=== PATIENT | male | born 1975 | race Caucasian/White ===

== ENCOUNTER 2020-09-16 08:45 | Outpatient (REF) | payer MEDICAID, SELFPAY ==
[2020-09-16 15:07] LABS: HCT 47.5 % (40.0-50.0); HGB 16.3 g/dL (13.5-17.5); MCH 30.8 pg (27.0-33.0); MCHC 34.3 % (32.0-36.0); MCV 89.8 fL (80-95); MPV 8.5 fL (8.0-11.0); Platelet Count 319 10^3/uL (130-400); RBC 5.29 10^6/uL (4.36-5.78); RDW 12.7 % (11.8-14.1); WBC 5.99 10^3/uL (4.4-10.8)
[2020-09-16 15:29] LABS: ALT 28 U/L (16-63); AST 18 U/L (15-37); Albumin 4.2 g/dL (3.4-5.0); Alkaline Phosphatase 55 U/L (46-116); BUN 14 mg/dL (7-18); Bilirubin, Total 0.5 mg/dL (0.2-1.0); CREATININE 0.8 mg/dL (0.70-1.30); Calculated LDL 181 mg/dL (<100); Chloride 103 mmol/L (98-107); Cholesterol 244 mg/dL (<200); Glucose 94 mg/dL (74-106); HDL Cholesterol 44 mg/dL (40-60); Potassium 4.8 mmol/L (3.5-5.1); Sodium 141 mmol/L (136-145); Total Protein 7.7 g/dL (6.4-8.2); Triglyceride 96 mg/dL (<150)
== END 2020-09-16 08:46 | disposition home or self-care (01) ==
LOC: NCHCN 08:45
PROVIDERS: Visit Provider Physician Assistant
DX: Z13.220 Encounter for screening for lipoid disorders (principal); Z13.228 Encounter for screening for other metabolic disorders; Z00.00 Encounter for general adult medical examination without abnormal findings
CPT/HCPCS: 80053; 80061; 85027

== ENCOUNTER 2021-02-26 08:23 | Outpatient (REF) | payer MEDICAID, SELFPAY ==
[2021-02-26 14:25] LABS: Calculated LDL 167 mg/dL (<100); Cholesterol 221 mg/dL (<200); HDL Cholesterol 40 mg/dL (40-60); Triglyceride 73 mg/dL (<150)
== END 2021-02-26 08:24 | disposition home or self-care (01) ==
LOC: NCHCN 08:23
PROVIDERS: Visit Provider Physician Assistant
DX: E78.5 Hyperlipidemia, unspecified (principal)
CPT/HCPCS: 80061

== ENCOUNTER 2021-10-05 01:13 | Outpatient (CLI) | payer MEDICAID, SELFPAY ==
--- NOTE | 2021-10-05 | DI.RAD_ITS ---
Exam(s) XR THORACIC SPINE COMPLETE EXAM: XR THORACIC SPINE COMPLETE CLINICAL HISTORY: CHRONIC THORACIC BACK PAIN, M54.9, HX OF DISTANT TRAUMA. TECHNIQUE: 2D digital imaging was performed. COMPARISON: No exams were available for comparison FINDINGS: BONES: There is no fracture or destructive lesion. The vertebral bodies and posterior elements are un remarkable. Alignment is within normal limits. DISKS:Mild anterior disc space narrowing and small endplate osteophytes mid to lower thoracic spine. SOFT TISSUE: Visualized lungs are clear. Heart size normal. IMPRESSION: Mild degenerative changes of the mid and lower thoracic spine. DATA REPOSITORY: RADIATION DOSE DELIVERED:
== END 2021-10-05 01:33 ==
PROVIDERS: PCP Physician Assistant; Visit Provider Physician Assistant
DX: M54.6 Pain in thoracic spine (principal); M51.34 Other intervertebral disc degeneration, thoracic region; M25.78 Osteophyte, vertebrae
CPT/HCPCS: 72072

== ENCOUNTER → 2022-01-14 00:37 | Outpatient (CLI) | payer MEDICAID, SELFPAY ==
--- NOTE | 2022-01-14 14:25 | DI.RAD_ITS ---
Exam(s) XR KNEE RT 3V AP,LAT,MIRANDA EXAM: XR KNEE RT 3V AP,LAT,MIRANDA CLINICAL HISTORY: RT KNEE JOINT PAIN, M25.561, INSTABILITY, S/P TWISTING INJURY 3 MONTHS AGO. TECHNIQUE: 2D digital imaging was performed. COMPARISON: No exams were available for comparison FINDINGS: 3 views No evidence of obvious fracture but there is a prominent joint effusion signifying internal derangeme nt. No osseous lesions. No obvious degenerative changes. No osteochondral defects. No osseous les ions. No radiopaque foreign body. IMPRESSION: No significant osseous findings. However, there is a joint effusion signifying an internal derangeme nt. DATA REPOSITORY: RADIATION DOSE DELIVERED:
== END ==
PROVIDERS: PCP Physician Assistant; Visit Provider Physician Assistant
DX: M25.461 Effusion, right knee (principal); M23.8X1 Other internal derangements of right knee; M25.361 Other instability, right knee; Z87.828 Personal history of other (healed) physical injury and trauma
CPT/HCPCS: 73562

== ENCOUNTER → 2022-02-11 02:08 | Outpatient (CLI) | payer MEDICAID, SELFPAY ==
--- NOTE | 2022-02-11 13:45 | DI.MRI_ITS ---
Exam(s) MR LOWER JOINT RT WO EXAM: MR LOWER JOINT RT WO CLINICAL HISTORY: RT KNEE JT, INSTABILITY S/P TWISTING INJURY 3 MOS AGO, M25.561. TECHNIQUE: Multiplanar multisequence MRI was performed. COMPARISON: CR XR KNEE RT 3V AP,LAT,MIRANDA from 01/14/2022 FINDINGS: BONES: There is no fracture or contusion pattern. JOINTS: A moderate-sized joint effusion is present. There is a small Castro's cyst. Articular cartilage: Patellofemoral joint: Articular cartilage shows some fraying. No focal defect. Medial femoral tibial joint: Articular cartilage is unremarkable. Lateral femoral tibial joint: Articular cartilage is unremarkable. TENDONS: Extensor mechanism: Unremarkable. Medial retinaculum: Unremarkable. Lateral retinaculum: Unremarkable. Popliteus: Unremarkable. Thickening and edema of the semimembranosus tendon down to the insertion but no full-thickness tear. MUSCLES: Unremarkable. MENISCI: The medial meniscus shows a abnormal linear signal in the posterior horn and body extending to the inferior articular surface. The meniscus appears somewhat diminutive although no displaced fr agment is identified.. The lateral meniscus is unremarkable. SOFT TISSUES: Unremarkable. LIGAMENTS: Anterior Cruciate: Some waviness and surrounding fluid but no full-thickness tear. Posterior Cruciate: Unremarkable. Medial Collateral:Mild amount of surrounding fluid. No focal tear visible. Lateral Collateral ligament complex: Unremarkable. OTHER: IMPRESSION: Tears of the posterior horn and body of the medial meniscus. Question of ACL sprain. Tendinosis versus sprain involving the semimembranosus tendon. DATA REPOSITORY:
== END ==
PROVIDERS: PCP Physician Assistant; Visit Provider Physician Assistant
DX: S83.211A Bucket-handle tear of medial meniscus, current injury, right knee, initial encounter (principal); X58.XXXA Exposure to other specified factors, initial encounter
CPT/HCPCS: 73721

== ENCOUNTER 2022-03-10 01:35 | Outpatient (CLI) | payer MEDICAID, SELFPAY ==
[2022-03-10 12:19] LABS: Source Nasal/Nares
[2022-03-10 16:53] LABS: COVID-19 PCR Negative (Negative)
== END 2022-03-10 01:36 | disposition home or self-care (01) ==
PROVIDERS: PCP Physician Assistant; Visit Provider Student in an Organized Health Care Education/Training Program
DX: Z20.822 Contact with and (suspected) exposure to COVID-19 (principal)
CPT/HCPCS: 87635

== ENCOUNTER 2022-03-12 06:52 | Day surgery (SDC) | payer MEDICAID, SELFPAY ==
[2022-03-12 07:38] VITALS: BP 125/77; PULSE 62; RESP 16; TEMP 36.5; O2SAT 16
[2022-03-12] MEDS: Lactated Ringers 1,000 ML 30 ML IV (08:03)
--- NOTE | 2022-03-12 08:21 | W.ANESPRE ---
General Info Date of Service Date Performed: 03/12/22 Height: 5 ft 6 in Weight: 83.5 kg Body Mass Index (BMI): 29.7 Surgical Procedure: Operation Date: 03/12/22 09:25 Proposed Procedure Side Surgeon p Knee Arthroscopy w/any indicated Meniscal, Chondral and Synovial Surgery Right Stevan Darnell MD Meds Allergies and Home Medications Allergies Allergy/AdvReac Type Severity Reaction Status Date / Time No Known Allergies Allergy Verified 03/11/22 13:31 Home Medication Medication Instructions Recorded amlodipine 5 mg tablet 5 mg PO DAILY PRN 10/07/21 Current Visit Medications: Current Medications Generic Name Dose Route Start Last Admin Trade Name Freq PRN Reason Stop Dose Admin Ringer's Solution 1,000 mls @ 30 mls/hr 03/12/22 06:00 03/12/22 08:03 IV 04/10/22 23:59 30 mls/hr INFUSION CHARU Administration Cefazolin Sodium/Dextrose 2 gm in 50 mls @ 100 mls/hr 03/12/22 06:00 Ancef Duplex IVPB 04/10/22 23:59 PREOP CHARU IV Miscellaneous Supplies 1 each 03/12/22 06:00 Iv Access IV 04/10/22 23:59 DIRECTED CHARU Oxycodone HCl 0 mg 03/12/22 07:09 Oxycodone 5 Mg Tab PO Q3H PRN PRN Pain Sodium Chloride 0 ml 03/12/22 06:00 Normal Saline Flush 10 Ml Syr IV 04/10/22 23:59 PRN PRN Sodium Chloride 0 ml 03/12/22 06:00 Normal Saline 10 Ml Vial IJ 04/10/22 23:59 DIRECTED PRN Sodium Chloride 0 ml 03/12/22 06:00 Normal Saline Flush 10 Ml Syr IV 04/10/22 23:59 PRN PRN Sterile Water 0 ml 03/12/22 06:00 Water,Injection,Sterile 10 Ml Vial IJ 04/10/22 23:59 DIRECTED PRN PFSH Active Problems Active Problems: Problem Status Onset Code Mixed hearing loss, bilateral H90.6 Eustachian tube dysfunction H69.80 Acute medial meniscus tear of right knee ~09/2021 S83.241A Effusion of right knee joint M25.461 Medical History Medical History Chest discomfort Per pt.states this was r/t to his thoracic back pain, and not a cardiac issue Cold intolerance Hearing loss Hyperlipidemia Raynauds disease Thoracic back pain Medical History Comments:: Per pt. states his mother has anesthesia psychosis, states he never had an issues himself. 03/12/22 pt reports he had a puncture injury w/ a screw on R lateral LL. Pt reports he had a tetanus shot at walk in clinic in [facility] 03/11/22. 03/12/22: Last smoked cannabis 03/11/22 19:00. Surgical History Surgical History History of placement of ear tubes History of tonsillectomy History of wisdom tooth extraction Tobacco Smoking/Tobacco Use Status: Current-Occasional Tobacco Type: cigarettes Alcohol Alcohol Intake: never Substance Use Substance use: Daily Substance use type: marijuana Details: smoked marijuana 03/11/22 19:00 Vital Signs and Lab Results Vital Signs Most Recent Vital Signs in EMR: Most Recent Vital Signs Temp Pulse Resp BP Pulse Ox 36.5 C 62 16 125/77 16 L 03/12/22 07:38 03/12/22 07:38 03/12/22 07:38 03/12/22 07:38 03/12/22 07:38 Lab Results Blood Type / Crossmatch: No Data to Display Complete Blood Count: No Data to Display Complete Metabolic Panel: No Data to Display Liver Function Panel: No Data to Display Coagulation Panel: No Data to Display Cardiac Panel: No Data to Display Arterial Blood Gas: No Data to Display Venous Blood Gas: No Data to Display Pancreas Panel: No Data to Display Thyroid Panel: No Data to Display Infectious Disease: Coronavirus (COVID-19)(PCR) Negative (Negative) 03/10/22 10:00 Coronavirus 2019 Source Nasal/Nares 03/10/22 10:00 Blood Cultures: No Data to Display Toxicology Panel: No Data to Display Anesthesia Assessment and Plan Anesthesia History Personal History: No History of Anesthesia Complications and Other Family History: Other Exercise Tolerance Exercise Tolerance: Metabolic Equivalents>4 Pertinent Negatives Pertinent Negatives: No Symptoms of GERD, No Major Cardiovascular Symptoms or Complaints and No Major Pulmonary Symptoms or Complaints Cardiac & Pulmonary Exam Cardiac Exam: Normal S1/S2 Heart Sounds Pulmonary Exam: Wheezing Present (ERIKA) Implantable Cardiac Device Does patient have a Pacemaker or an ICD?: No Airway Exam Known Difficult Airway: No Mallampati Class: 3 Mouth Opening: Normal (> 3cm) Thyromental Distance: Greater than 3 cm Facial Hair: Full Cao Neck Range of Motion: Full ROM Neck Circumference: Normal Teeth Condition: Normal Dentition ASA Classification ASA Score: ASA 2 Emergency Case?: No NPO Status NPO Status: NPO Clears >2 hours, Solids >8 hours Anesthesia Plan Resuscitation Status: Full Code Anesthesia Technique: Spinal Anesthesia Airway Planned: Natural Airway Monitors Used: Standard Monitors Preoperative Comments:: Prefers SAB before GA/LMA
[2022-03-12 08:24] VITALS: BMI 29.7
[2022-03-12] MEDS: ceFAZolin 2 GM/50 ML BAG IVPB (10:00)
[2022-03-12] MEDS: EPINEPHrine 30 MG/30 ML VIAL (10:21)
[2022-03-12] MEDS: Bupivacaine 0.25% Pres-Free W/EPI 30 ML VIAL (10:21)
[2022-03-12] MEDS: MORPHine 4 MG/ML SYR (10:21)
--- NOTE | 2022-03-12 10:30 | ROE_ITS ---
Operative Note Operative Note DATE OF PROCEDURE: 03/12/22 PRE-OP DIAGNOSIS: Right knee 1. Medial meniscus tear 2. Synovitis POST-OP DIAGNOSIS: same Right knee 1. Medial and lateral meniscus tears 2. Synovitis PROCEDURE: Right knee 1. Partial medial and lateral meniscectomy, CPT #30744 2. 2 compartment synovectomy, CPT #02063: Patellofemoral and intercondylar SURGEON: Stevan Darnell LUNCH TRUCK DRIVER: None None ANESTHESIA TYPE: Local By Surgeon and Spinal Refer to Anesthesia Record ESTIMATED BLOOD LOSS: 5 PATHOLOGY: none sent TOURNIQUET TIME: 0 Patient was transported to: PACU Patient's condition: stable Indications: Please see complete medical record for details. Findings: Exam under anesthesia: Full range of motion, no instability Arthroscopic findings: Moderate suprapatellar adhesions and patellofemoral synovitis, abundant intercondylar anteromedial anterolateral inflamed synovitis. Moderate large displaced chronic?appearing bucket-handle medial meniscus tear. Small posterior horn near root junction lateral meniscus tear and fraying. Largely intact articular cartilage except for small defect softening beneath the posterior horn of the lateral meniscus. Procedure Description: In the operating room, genral anesthesia was induced. The patient was positioned supine on the operating room table. All bony prominences were well- padded. Preoperative antibiotics were administered. The knee was prepped and draped in the usual sterile fashion. The correct patient, procedure, and side of the procedure were all verified prior to incision. Exam under anesthesia was performed. 10 cc of 0.25% bupivacaine containing epinephrine was infiltrated about the planned anteromedial and anterolateral knee arthroscopy portals. The portals were established and a complete diagnostic arthroscopy was performed with relevant findings detailed above. The mechanical shaver was used to remove pathologic synovium from the anteromedial, anterolateral, intercondylar areas, and adhesions from the patellofemoral compartment. Using a combination of hand instruments including meniscal biters and a power shaver and working through the anteromedial and anterolateral portals the displaced medial meniscus tissue was transected, morselized, and then removed with the mechanical shaver. A single larger piece was removed with a snap and placed into a specimen cup for the patient. The meniscus remnant was debrided of all torn tissue to a stable margin. Care was taken to preserve as much meniscus tissue was possible. The meniscal remnant was probed and found to have a stable margin, stable root, and no other tears. A small posterior horn root lateral meniscus tear was debrided with the mechanical shaver removing fraying and partial tearing to a stable margin. A small localized chondroplasty was performed of cartilage flaps about a localized area of softening under the posterior horn lateral meniscus. Under direct arthroscopic visualization an 18-gauge needle was passed into the knee from superolateral into the suprapatellar pouch. The knee was copiously irrigated with arthroscopic fluid until there was a clear effluent before being drained of all fluid. The anteromedial and anterolateral portals were closed in 3-0 Monocryl in a buried interrupted fashion. 20 cc of 0.25% bupivacaine with epinephrine containing 4 mg of morphine was infiltrated into the knee through the previously placed needle. Mastisol, Steri-Strips, and 4 x 4 gauze were applied over the incisions followed by sterile soft roll. The knee was then wrapped gently with an VERONICA comressive bandage. The patient awoke from anesthesia without complication and was transferred to the recovery room in a stable condition.
[2022-03-12 11:06] VITALS: BP 118/56; PULSE 78; RESP 16; TEMP 35.8; O2SAT 97
--- NOTE | 2022-03-12 11:32 | PDOC.DSDIS_ITS ---
Discharge Plan Disposition Patient Disposition: HOME Condition: Stable Discharge Details Reason For Visit: Right knee surgery Attending Provider: Stevan Darnell Primary Care Provider: Mayur Nicole Home Meds and New Rx's Prescriptions: New aspirin 81 mg tablet,delayed release (DR/EC) 81 mg PO DAILY 14 Days Qty: 14 0RF naproxen 250 mg tablet 250 - 500 mg PO BID PRNQty: 40 0RF Rx Instructions: take with a meal oxycodone 5 mg tablet 5 - 10 mg PO Q4H MDD 30 mg PRN (Reason: moderate to severe pain) Qty: 18 0RF Continued amlodipine 5 mg tablet 5 mg PO DAILY PRN Rx Instructions: Take 1 tablet daily prn for cold weather exposure Discharge Instructions Additional Instructions: Surgery: Right knee arthroscopy with partial medial and lateral meniscectomy and synovectomy Activity: Weightbearing as tolerated. Advance range of motion as comfort allows. No knee brace or crutches needed as soon as comfortable. Recommend avoiding heavy labor, twisting, and squatting for about 6 weeks. A physical th erapy prescription will be provided separately in the office at follow-up if needed. Prescriptions: Aspirin 81 mg take 1 daily to prevent a blood clot for 14 days Naproxen 250 mg take 1-2 every 12 hours with a meal as needed for moderate pain Oxycodone 5 mg take 1-2 every 4-6 hours as needed for severe pain You may use [id number] Tylenol (acetaminophen) as needed for mild pain. These pain medications may be taken all at once or in different combinations as needed. Also, recommend Colace (docusate) as a stool softener as surgery and pain medicine cause constipation. You may try [id number] diphenhydramine (Benadryl) 25-50 mg nightly as a sleep aid Dressings: Leave dressing in place for 3 days. May then remove and leave open to air or cover incisions with Band-Aids. May shower after 5 days. Follow-up: 10-[address] Darnell Let us know right away if you develop any redness, drainage, fevers, chest pain, or trouble breathing. Do not drink alcohol or drive for at least 24 hours after anesthesia. Please call the office during business hours with any questions or concerns. Discharge Orders Discharge Orders: Discharge Order (Routine); Ordered 03/12/22 Ordered By: Stevan Darnell DS: Diagnosis Discharge Diagnosis (1) Acute medial meniscus tear of right knee: Status: Acute
[2022-03-12 11:44] VITALS: BP 122/69; PULSE 80; RESP 16; TEMP 36.5; O2SAT 98
--- NOTE | 2022-03-12 12:01 | W.ANESPOSTOP ---
Postoperative Evaluation Date, Time and Location Date Performed: 03/12/22 Time Performed: 12:02 Patient Location: Day Surgery Unit Vital Signs Most Recent Imported Vital Signs: Most Recent Vital Signs Temp Pulse Resp BP Pulse Ox 36.5 C 80 16 122/69 98 03/12/22 11:44 03/12/22 11:44 03/12/22 11:44 03/12/22 11:44 03/12/22 11:44 Pain Score Most Recent Pain Score: Most Recent Pain Score Pain Level 0 03/12/22 11:44 Assessment Mental Status: Awake (Alert & Oriented to Patient Baseline) Airway and Respiratory Function: Patent airway with normal (patient baseline) respiratory exam Cardiovascular Function: Hemodynamically Stable Hydration Status: Adequately Hydrated Nausea & Vomiting: No Nausea or Vomiting Pain: Pt. Denies Any Pain Peripheral Nerve Block: Patient did not receive a nerve block
== END 2022-03-12 12:40 | disposition home or self-care (01) ==
PROVIDERS: PCP Physician Assistant; Visit Provider Student in an Organized Health Care Education/Training Program
PROC: (CPT 29870; principal; 2022-03-12 09:15)
DX: S83.241A Other tear of medial meniscus, current injury, right knee, initial encounter (principal); M65.861 Other synovitis and tenosynovitis, right lower leg; S83.281A Other tear of lateral meniscus, current injury, right knee, initial encounter; X58.XXXA Exposure to other specified factors, initial encounter
CPT/HCPCS: 29876; 29880; J0690; J1100; J1885; J2250; J2270; J2405; J2704; J3010

== ENCOUNTER 2022-03-24 12:00 | Outpatient (REF) | payer MEDICAID, SELFPAY ==
[2022-03-24 12:13] LABS: Clarity Cloudy
[2022-03-24 12:14] LABS: Nucleated Cells 727 uL (0)
[2022-03-24 12:19] LABS: Crystals (BF) No Crystals seen
[2022-03-24 12:23] LABS: Mononuclear Cells 59 %; Polynuclear Cells 41 %
== END 2022-03-24 12:01 | disposition home or self-care (01) ==
LOC: LBN 12:00
PROVIDERS: PCP Physician Assistant; Visit Provider Student in an Organized Health Care Education/Training Program
DX: M25.461 Effusion, right knee (principal)
CPT/HCPCS: 87070; 87205; 89051; 89060

== ENCOUNTER → 2022-03-31 12:04 | Outpatient (CLI) | payer MEDICAID, SELFPAY ==
--- NOTE | 2022-03-31 11:45 | DI.US_ITS ---
Exam(s) US LOWER EXTREMITY VENOUS RT EXAM: US LOWER EXTREMITY VENOUS RT CLINICAL HISTORY: SWELLING RIGHT LOWER EXTREMITY ? dvt M79.89 S83.241A MENISCUS TEAR. TECHNIQUE: Lower extremity venous ultrasound performed using grayscale, color-flow, and spectral Do ppler analysis. COMPARISON: MR MR LOWER JOINT RT WO from 02/11/2022 FINDINGS: The common femoral, femoral and popliteal veins demonstrate normal compressibility, augmentation, and color Doppler. The posterior tibial veins are patent. No saphenous vein thrombosis or other superfi cial venous thrombosis is seen. No hematoma is seen. There is a small bilobed Castro's cyst measuri ng 5.3 x 1.9 x 1.3 cm. IMPRESSION: Castro's cyst. No evidence of DVT. DATA REPOSITORY:
== END ==
PROVIDERS: PCP Physician Assistant; Visit Provider Student in an Organized Health Care Education/Training Program
DX: R22.41 Localized swelling, mass and lump, right lower limb; M71.21 Synovial cyst of popliteal space [Baker], right knee; S83.241A Other tear of medial meniscus, current injury, right knee, initial encounter; M79.89 Other specified soft tissue disorders
CPT/HCPCS: 93971

== ENCOUNTER 2022-05-17 02:55 | Outpatient (CLI) | payer MEDICAID, SELFPAY ==
[2022-05-17 11:34] LABS: Abs Immature Grans 0.03 10^3/uL (0.0-0.06); Absolute Basophil Count 0.07 10^3/uL (0.0-0.2); Absolute Eosinophil Count 0.17 10^3/uL (0.0-0.7); Absolute Lymphocyte Count 2.36 10^3/uL (1.2-3.4); Absolute Monocyte Count 0.62 10^3/uL (0.1-0.8); Absolute Neutrophil Count 5.46 10^3/uL (1.2-6.7); Basophils % 0.8; ESR 18 mm/hr (0-15); HCT 46.4 % (40.0-50.0); HGB 15.6 g/dL (13.5-17.5); Immature Grans % 0.3; Lymphocytes % 27.1; MCH 30.1 pg (27.0-33.0); MCHC 33.6 % (32.0-36.0); MCV 89 fL (80-95); Monocytes % 7.1; Neutrophils % 62.7; Platelet Count 284 10^3/uL (130-400); RBC 5.19 10^6/uL (4.36-5.78); RDW 12.6 % (11.8-14.1); RDW-SD 41.9 fL; WBC 8.71 10^3/uL (4.4-10.8)
[2022-05-17 11:58] LABS: C-Reactive Protein 0.16 mg/dL (0.0-0.3)
[2022-05-18 10:29] LABS: Lyme Ab w Rflx to Lyme Confirm Positive (Negative)
[2022-05-18 11:11] LABS: Lyme IgG Ab Negative (Negative); Lyme IgM Ab Positive (Negative)
[2022-05-19 22:25] LABS: Anaplasma phagocytophilum Negative (Negative); B. miyamotoi PCR Negative (Negative); Babesia divergens/MO-1 Negative (Negative); Babesia duncani Negative (Negative); Babesia microti Negative (Negative); Ehrlichia chaffeensis Negative (Negative); Ehrlichia ewingii/canis Negative (Negative); Ehrlichia muris eauclairensis Negative (Negative)
== END 2022-05-17 02:56 | disposition home or self-care (01) ==
LOC: LBO 02:55
PROVIDERS: PCP Physician Assistant; Visit Provider Student in an Organized Health Care Education/Training Program
DX: M25.561 Pain in right knee (principal); M25.461 Effusion, right knee
CPT/HCPCS: 36415; 85652; 86617; 87798; 85025; 86140; 86618

== ENCOUNTER 2022-07-22 09:10 | Outpatient (CLI) | payer MEDICAID, SELFPAY ==
[2022-07-23 11:53] LABS: Lyme Ab w Rflx to Lyme Confirm Positive (Negative)
[2022-07-23 16:37] LABS: Lyme IgG Ab Negative (Negative); Lyme IgM Ab Positive (Negative)
== END 2022-07-22 09:11 | disposition home or self-care (01) ==
LOC: LBO 09:10
PROVIDERS: PCP Physician Assistant; Visit Provider Physician Assistant
DX: M25.561 Pain in right knee (principal)
CPT/HCPCS: 36415; 86617; 86618

== ENCOUNTER 2022-11-01 08:47 | Day surgery (SDC) | payer MEDICAID, SELFPAY ==
--- NOTE | 2022-10-31 20:20 | W.PM.DSUDISC ---
Date of service: 11/01/22 Time of Service: 11:55 Discharge Plan Disposition Patient Disposition: Home Condition: Good Discharge Details Reason For Visit: Screening colonscopy Attending Provider: Isaiah Escamilla Primary Care Provider: Mayur Nicole Home Meds and New Rx's Prescriptions: Continued ibuprofen 200 mg capsule 200 mg PO Q6H PRN coQ10 (ubiquinol) 100 mg Capsule 100 mg PO DAILY Discontinued polyethylene glycol 3350 17 gram/dose powder 238 g PO ONCE Qty: 238 0RF Rx Instructions: take per colonoscopy instructions bisacodyl [Dulcolax (bisacodyl)] 5 mg tablet,delayed release (DR/EC) 5 mg PO ONCE Qty: 4 0RF Rx Instructions: take per colonoscopy instructions Discharge Instructions Instructions: Colorectal Polyps (GEN) Additional Instructions: Onesimo, we were able to complete your colonoscopy today without any difficulty. The quality of your preparation was excellent. I did find 1 polyp about 16 cm seen from your anus. I removed this completely. It will take a week or so for me to get the results on the type of polyp. At that point I will be in touch with regards to recommendations on your next screening colonoscopy. 1. If tolerated, consume a soft, low fiber diet for 1-2 days. 2[address] Do not drive, drink alcohol, operate machinery, make critical decisions, or do activities that require coordination or balance for 24 hours. 3. Because air was put into your colon during the procedure, expelling air from your rectum (passing gas or farting) is normal. 4. You may not have a bowel movement for 1-3 days because of the colonoscopy prep. This is normal. 5. Go directly to the emergency room if you notice any of the following: Develop chills (warm to touch), or if you have a thermometer and your temperature is above 101 Difficulty breathing or difficultly swallowing Persistent vomiting Severe abdominal pain, other than gas cramps Severe chest pain Black, tarry stools Any bleeding ? exceeding one tablespoon 6. Call your physician if the site where your intravenous was started becomes red, swollen, painful, and warm to touch. 7. Your physician has reviewed your pre-procedure medications. Please continue to take those medications as previously ordered. You will be given specific information/education regarding any changes to your medications before leaving. Activity:: Activity as Tolerated Diet:: As Tolerated Discharge Orders Discharge Orders: Discharge Order (Routine); Ordered 10/31/22 Ordered By: Isaiah Escamilla DS: Diagnosis Discharge Diagnosis (1) Screening for colon cancer: Status: Acute Asessment and Plan: Follow-up on polypectomy results
--- NOTE | 2022-10-31 20:22 | W.COLOREPORT ---
Date of service: 11/01/22 Time of Service: 11:58 Colonoscopy Report Date of procedure: 11/01/22 Pre-op diagnosis general: Screening colonoscopy Post-op diagnosis procedure note: other (Colorectal polyp) Procedure: Colonoscopy with polypectomy Surgeon: Isaiah Escamilla Anesthesia Type: General:No Airway Estimated blood loss (mL): 10 Pathology: other (Room 16 cm) Complications: None Disposition: same day Indications: Justyn is a 47 year old man with a first degree relative with colon cancer. He is here for a screneing colonoscopy Prep: Miralax/Dulcolax Procedure Start Time: 11:33 Procedure End Time: 11:44 Retraction Time: 8 Findings: Single polyp around 16 cm from the anal verge, right at the rectosigmoid junction Procedure Description: After the induction of monitored anesthetic care, and with the patient in left lateral decubitus position, I began by performing an external anorectal exam.? Perineum and skin were normal, as was the anal verge.? There was no evidence of external hemorrhoids.? Next, I performed a digital rectal exam.? I did not appreciate any abnormal findings.? Next, I advanced a colonoscope into the rectal vault.? I performed retroflexion.? This was normal.? Using insufflation, I then advanced the colonoscope beyond the rectal folds and into the sigmoid colon before advancing towards the cecum.? Just at the junction of the rectosigmoid area around 16 cm from the anal verge was a 0.25 cm sessile polyp. I removed this with cold forcep polypectomy and there was minimal bleeding here. The quality of the prep was excellent.? The scope was noted to be in the cecum by identification of the ileocecal valve and appendiceal orifice.? I then began withdrawing the colonoscope using repeated irrigation as necessary for full evaluation of the colonic mucosa. ?Once the scope was withdrawn to the level of the rectum, great care was taken to examine portions of the rectal folds.? Finally, the scope was withdrawn and the patient was brought to the same-day surgery recovery unit as the anesthetic wore off. ?The findings and instructions were shared with the patient prior to discharge.
--- NOTE | 2022-11-01 06:19 | ANES.PREOP_ITS ---
General Info Date of Service Date Performed: 11/01/22 Height: 5 ft 6 in Weight: 80.286 kg Body Mass Index (BMI): 28.5 Surgical Procedure: Operation Date: 11/01/22 10:50 Proposed Procedure Side Surgeon michael Escamilla MD Meds Allergies and Home Medications Allergies Allergy/AdvReac Type Severity Reaction Status Date / Time No Known Allergies Allergy Verified 11/01/22 09:37 Home Medication Medication Instructions Recorded ibuprofen 200 mg capsule 200 mg PO Q6H PRN 05/05/22 coQ10 (ubiquinol) 100 mg capsule 100 mg PO DAILY 10/28/22 Current Visit Medications: Current Medications Generic Name Dose Route Start Last Admin Trade Name Freq PRN Reason Stop Dose Admin Hyoscyamine Sulfate 0.125 mg 10/31/22 20:24 Hyoscyamine 0.125 Mg Sl/Oral/Chew SL DIRECTED PRN Ringer's Solution 1,000 mls @ 80 mls/hr 11/01/22 06:00 IV 11/28/22 23:59 IN[facility]ION [facility] IV Miscellaneous Supplies 1 each 11/01/22 06:00 Iv Access IV 11/28/22 23:59 DIRECTED CHARU Ondansetron HCl 4 mg 10/31/22 20:24 Ondansetron 4 Mg/2 Ml Vial IVP Q4H PRN PRN Nausea / Vomiting Sodium Chloride 0 ml 11/01/22 06:00 Normal Saline Flush 10 Ml Syr IV 11/28/22 23:59 PRN PRN Sodium Chloride 0 ml 11/01/22 06:00 Normal Saline 10 Ml Vial IJ 11/28/22 23:59 DIRECTED PRN Sterile Water 0 ml 11/01/22 06:00 Water,Injection,Sterile 10 Ml Vial IJ 11/28/22 23:59 DIRECTED PRN PFSH Active Problems Active Problems: Problem Status Onset Code Screening for colon cancer Z12.11 Mixed hearing loss, bilateral H90.6 Eustachian tube dysfunction H69.80 Acute medial meniscus tear of right knee ~09/2021 S83.241A Effusion of right knee joint M25.461 Medical History Medical History Chest discomfort Per pt.states this was r/t to his thoracic back pain, and not a cardiac issue Cold intolerance Hearing loss Hyperlipidemia Raynauds disease Thoracic back pain Medical History Comments:: Per pt. states pt mother has psychosis reaction coming out of anesthesia Surgical History Surgical History (Updated 11/01/22 @ 09:39 by Natalie Johns RN) History of placement of ear tubes History of tonsillectomy History of wisdom tooth extraction Hx of meniscectomy of right knee Tobacco Smoking/Tobacco Use Status: Current-Occasional Tobacco Type: cigarettes Alcohol Alcohol Intake: never Substance Use Substance use: Daily Substance use type: marijuana Vital Signs and Lab Results Lab Results Blood Type / Crossmatch: No Data to Display Complete Blood Count: No Data to Display Complete Metabolic Panel: No Data to Display Liver Function Panel: No Data to Display Coagulation Panel: No Data to Display Cardiac Panel: No Data to Display Arterial Blood Gas: No Data to Display Venous Blood Gas: No Data to Display Pancreas Panel: No Data to Display Thyroid Panel: No Data to Display Infectious Disease: No Data to Display Blood Cultures: No Data to Display Toxicology Panel: No Data to Display Anesthesia Assessment and Plan Anesthesia History Personal History: No History of Anesthesia Complications Family History: Other Exercise Tolerance Exercise Tolerance: Metabolic Equivalents>4 Cardiac & Pulmonary Exam Cardiac Exam: Normal S1/S2 Heart Sounds Pulmonary Exam: Clear Bilateral Breath Sounds Implantable Cardiac Device Does patient have a Pacemaker or an ICD?: No Airway Exam Known Difficult Airway: No Mallampati Class: 3 Mouth Opening: Normal (> 3cm) Thyromental Distance: Greater than 3 cm Neck Range of Motion: Full ROM Neck Circumference: Normal Teeth Condition: Normal Dentition ASA Classification ASA Score: ASA 2 Emergency Case?: No NPO Status NPO Status: NPO Clears >2 hours, Solids >8 hours Anesthesia Plan Resuscitation Status: Full Code Anesthesia Technique: General Anesthesia Airway Planned: Natural Airway Monitors Used: Standard Monitors Preoperative Comments:: 47 yo male for colo. Sig PMHx: Raynaud's, occ smoker, daily cannabis. Previous Anes: spinal for knee scope.
[2022-11-01 09:28] VITALS: BP 123/86; PULSE 66; RESP 16; TEMP 36.3; O2SAT 98
[2022-11-01] MEDS: Lactated Ringers 1,000 ML 80 ML IV (09:52)
[2022-11-01 10:47] VITALS: BMI 28.5
--- NOTE | 2022-11-01 11:32 | BOWEL_PTH ---
PATIENT: Justyn Martinez LOC: [facility] U#:[id number] AGE/SX: 47/M ROOM: RE11/01/[address]: Isaiah Escamilla MD : 1975 BED: DIS: 11/01/2022 SPEC #: [id number] RECD: 11/01/22 12:39 STATUS: EARL REQ #: [id number] ELDA: 11/01/22 11:[address]: Isaiah Escamilla DEPT: Surgical Specimen RECD BY: Sherita Bass ENTERED: 11/01/22 12:40 SP TYPE: Bowel OTHR DR: Mayur Nicole Tissues: 1 - BIOPSY BOWEL Procedures: GROSS AND MICRO LEVEL 4 Comments: [id number]
[2022-11-01 11:49] VITALS: BP 108/73; PULSE 82; RESP 17; TEMP 36.5; O2SAT 100
[2022-11-01 12:19] VITALS: BP 111/79; PULSE 69; RESP 17; TEMP 36.7; O2SAT 97
--- NOTE | 2022-11-01 12:24 | W.ANESPOSTOP ---
Postoperative Evaluation Date, Time and Location Date Performed: 11/01/22 Time Performed: 12:24 Patient Location: Day Surgery Unit Vital Signs Most Recent Imported Vital Signs: Most Recent Vital Signs Temp Pulse Resp BP Pulse Ox 36.5 C 82 17 108/73 100 11/01/22 11:49 11/01/22 11:49 11/01/22 11:49 11/01/22 11:49 11/01/22 11:49 Pain Score Most Recent Pain Score: Most Recent Pain Score Pain Level 0 11/01/22 09:28 Assessment Mental Status: Awake (Alert & Oriented to Patient Baseline) Airway and Respiratory Function: Patent airway with normal (patient baseline) respiratory exam Cardiovascular Function: Hemodynamically Stable Hydration Status: Adequately Hydrated Nausea & Vomiting: No Nausea or Vomiting Pain: Pt. Denies Any Pain Peripheral Nerve Block: Patient did not receive a nerve block
== END 2022-11-01 12:20 | disposition home or self-care (01) ==
PROVIDERS: PCP Physician Assistant; Visit Provider Surgery
PROC: 0DJD8ZZ Inspection of Lower Intestinal Tract, Via Natural or Artificial Opening Endoscopic (ICD-10-PCS; CPT 45378; principal; 2022-11-01 10:45)
DX: Z12.11 Encounter for screening for malignant neoplasm of colon (principal); D12.8 Benign neoplasm of rectum; Z80.0 Family history of malignant neoplasm of digestive organs
CPT/HCPCS: 45380; 88305

== ENCOUNTER 2023-08-19 05:37 | Emergency (ER) | payer MEDICAID, SELFPAY ==
[2023-08-19 05:41] VITALS: BP 165/95; PULSE 94; RESP 16; TEMP 36.4; O2SAT 97
--- NOTE | 2023-08-19 05:45 | RT.EKG_ITS ---
APPROVED REPORT Exam: Resting ECG Reason for Exam: palpitations Patient Location: E HR:98 bpm ECG Measurements Heart Rate 98 AXIS NM 136 P 65 QRSd 100 QRS 77 QT 360 T 21 QTc 460 Conclusion Sinus rhythm.. V-rate 60- [address] segment or T wave abnormalities to suggest occlusive NM.
--- NOTE | 2023-08-19 06:00 | W.ED.GENAD ---
Discharge Plan Discharge Details Chief Complaint: Palpitatns Primary Care Provider: Mayur Nicole ED Provider: Rosmery Miranda Home Meds and New Rx's Prescriptions: No Action ibuprofen 200 mg capsule 200 mg PO Q6H PRN coQ10 (ubiquinol) 100 mg Capsule 100 mg PO DAILY HPI General Mode of arrival: ambulatory. Date/Time Provider Initiated Documentation: 08/19/23 05:39. Limitations to Documentation: no limitations. Information obtained by: patient and old records reviewed. HPI Narrative: 47yo M with hx of hearing loss presenting for palpitations. 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 Recently started a new job where he is working ~70 hours a week. Yesterday night noted bilateral lower extremity swelling which has since improved. He also reports an intermittent thumping in his right thigh and in his chest followed by his face and then his whole body 'tingling'. No chest pain, shortness of breath, presycnope, orthopnea, body aches, numbness, weakness, or other concerns. Related Data Home Medications Medication Instructions Recorded Confirmed ibuprofen 200 mg capsule 200 mg PO Q6H PRN 05/05/22 11/01/22 coQ10 (ubiquinol) 100 mg capsule 100 mg PO DAILY 10/28/22 11/01/22 Allergies Allergy/AdvReac Type Severity Reaction Status Date / Time No Known Allergies Allergy Verified 11/01/22 09:37 General Stated Complaint: Palpitatns ZITA: 3 Review of Systems Narrative: see HPI Exam Narrative Exam Narrative: General: Alert, well appearing, well nourished, in no acute distress. Head: Normocephalic, atraumatic Neck: Trachea midline, ?Neck supple. ENT: ?MMM.? No oropharygeal lesions or exudate. Cardiac: ?RRR, no murmurs appreciated Resp: No respiratory distress. CTAB. Abd: ?Soft, non-distended, nontender : ?No suprapubic tenderness. No CVA tenderness. Extremities: ?No deformities.? Slight symmetric edema bilateral lower extremities. No calf tenderness. Right anterior/medial thigh slightly warm and TTP. Compartments soft. No erythema or skin lesions. Neuro: ? GCS 15.? PERRL.? EOMI.? Fluent speech, no dysarthria. Normal sensation in V1, V2, and V3 segments bilaterally. No asymmetry, no nasolabial fold flattening. Normal hearing to speech Motor- 5/5 strength symmetric bilateral upper and lower extremities Sensation- ?Intact to light touch and symmetric multiple dermatomes including upper and lower extremities Gait/station: ?Normal stance.? No truncal ataxia. Steady gait with equal normal steps Course Vital Signs Vital signs: Vital Signs Temperature 36.4 C L 08/19/23 05:41 Pulse 94 H 08/19/23 05:41 Respiratory Rate 16 08/19/23 05:41 Blood Pressure 165/95 H 08/19/23 05:41 Pulse Oximetry 97 08/19/23 05:41 Temperature 36.4 C L 08/19/23 05:41 Pulse 94 H 08/19/23 05:41 Respiratory Rate 16 08/19/23 05:41 Respiratory Effort Normal, Non-Labored 08/19/23 05:48 Blood Pressure 165/95 H 08/19/23 05:41 Pulse Oximetry 97 08/19/23 05:41 Oxygen Delivery Method Room Air 08/19/23 05:41 Oxygen Flow Rate 0 08/19/23 05:41 Medical Decision Making 47yo M with hx of hearing loss presenting for palpitations. 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 Today multiple concerns including sensation of throbbing in his right thigh and chest. No chest pain, shortness of breath, or presycnope. No history of blood clots. Hypertensive on arrival, vital signs otherwise reassuring. Exam with warmth and tenderness along femoral vascularature on exam, no increase in RLE size compared to left. Not compartment syndrome or cellulitis, DVT possible based on exam. Low suspicion for ACS. EKG NSR, appropriate intervals, no ST segment or T wave abnormalities to suggest occlusive MO. CBC reassuring with no leukoctysois or anemia, CMP with no significant abnormalities, TSH normal, lactate normal. Dimer elevated; CTA for pulmonary embolism ordered. Respiratory viral swab negative for covid, flu, influenza. Signed out to oncoming physican, plan to followup US and CT. Medical Records Medical records reviewed: Yes I reviewed the patient's medical records. Medical records narrative: clinic visit note 10/14/22 Lab Data Lab results reviewed: Yes I reviewed the patient's lab results. Labs: Laboratory Tests Range/Units 08/19/23 06:10 WBC (4.4-10.8) 10^3/uL 6.42 RBC (4.36-5.78) 10^6/uL 4.85 Hgb (13.5-17.5) g/dL 15.0 Hct (40.0-50.0) % 43.5 MCV (80-95) fL 90 MCH (27.0-33.0) pg 30.9 MCHC (32.0-36.0) % 34.5 RDW (11.8-14.1) % 12.8 Plt Count (130-400) 10^3/uL 328 MPV (8.0-11.0) fL 7.7 L Immature Gran % 0.2 Neutrophils % 55.4 Lymphocytes % 30.1 Monocytes % 9.5 Eosinophils % 4.0 Basophils % 0.8 Nucleated RBC % (0.0-0.3) % 0.0 Absolute Neutrophils (1.2-6.7) 10^3/uL 3.56 Absolute Lymphocytes (1.2-3.4) 10^3/uL 1.93 Absolute Monocytes (0.1-0.8) 10^3/uL 0.61 Absolute Eosinophils (0.0-0.7) 10^3/uL 0.26 Absolute Basophils (0.0-0.2) 10^3/uL 0.05 D-Dimer (<500) ng/mlFEU 1330 H VBG Lactate (0.6-1.4) mmol/L 1.0 Sodium (136-145) mmol/L 139 Potassium (3.5-5.1) mmol/L 4.3 Chloride (98-107) mmol/L 102 Carbon Dioxide (21.0-32.0) mmol/L 27.0 Anion Gap (3-11) mmol/L 10.0 BUN (7-18) mg/dL 16 Creatinine (0.70-1.30) mg/dL 0.9 Est GFR (CKD-EPI 2020) (mL/min/1.73m2) 104.70 Glucose (74-106) mg/dL 102 Calcium (8.5-10.1) mg/dL 9.2 Magnesium (1.8-2.4) mg/dL 2.0 Total Bilirubin (0.2-1.0) mg/dL 0.3 AST (15-37) U/L 38 H ALT (16-63) U/L 47 Alkaline Phosphatase (46-116) U/L 61 NT-Pro-B Natriuret Pep (<300) pg/mL 40 Total Protein (6.4-8.2) g/dL 7.3 Albumin (3.4-5.0) g/dL 3.5 TSH (0.36-3.74) uIU/mL 0.98 COVID-19 Source Nasopharynx SARS-CoV-2 (PCR) (Negative) Negative Influenza Type A (PCR) (Negative) Negative Influenza Type B (PCR) (Negative) Negative RSV (PCR) (Negative) Negative Quality:SDOH Health Related Social Needs: No Data to Display PFSH All Active Problems (Updated 01/04/23 @ 14:44 by Melissa Summers RN) Tubular adenoma (Acute ~11/01/22) Mixed hearing loss, bilateral (Acute) Eustachian tube dysfunction (Acute) Acute medial meniscus tear of right knee (Acute ~09/2021) Effusion of right knee joint (Acute) Screening for colon cancer (Acute) Medical History (Updated 01/04/23 @ 14:44 by Melissa Summers RN) Raynauds disease Chest discomfort Per pt.states this was r/t to his thoracic back pain, and not a cardiac issue Hyperlipidemia Thoracic back pain Hearing loss Cold intolerance Surgical History (Updated 01/04/23 @ 14:44 by Melissa Summers RN) History of colonoscopy with polypectomy (~11/01/22) Hx of meniscectomy of right knee History of placement of ear tubes History of tonsillectomy History of wisdom tooth extraction Family History (Updated 10/13/21 @ 13:43 by Jennifer PITTS) Maternal Grandfather Esophageal cancer Father Liver cancer Paternal Grandfather Liver cancer Mother Bowel cancer Sister No problems noted. Daughter No problems noted. Daughter No problems noted. Other Heart disease Social History (Updated 10/13/21 @ 13:43 by Jennifer PITTS) Smoking/Tobacco Use Status: Current-Occasional Tobacco Type: cigarettes Smoking risk assessment performed?: Yes Alcohol Intake: never Drug use: Daily Substance use type: marijuana Details: 10/31/22: smoked marijuana joint Number of Children: 2 Pets and animals: No Current gender identity: male Duration: 15-30 minutes/day Frequency: daily Seatbelt use: always Helmet use: Yes Helmet use: sometimes Working smoke detector in home: Yes Firearms in home: Yes Do you feel safe at home: Yes (unable to assess privately) Additional [facility]
[2023-08-19 06:14] LABS: Abs Immature Grans 0.01 10^3/uL (0.0-0.06); Absolute Basophil Count 0.05 10^3/uL (0.0-0.2); Absolute Eosinophil Count 0.26 10^3/uL (0.0-0.7); Absolute Lymphocyte Count 1.93 10^3/uL (1.2-3.4); Absolute Monocyte Count 0.61 10^3/uL (0.1-0.8); Absolute Neutrophil Count 3.56 10^3/uL (1.2-6.7); Basophils % 0.8; HCT 43.5 % (40.0-50.0); Immature Grans % 0.2; Lymphocytes % 30.1; MCH 30.9 pg (27.0-33.0); MCHC 34.5 % (32.0-36.0); MCV 90 fL (80-95); MPV 7.7 fL (8.0-11.0); Monocytes % 9.5; Neutrophils % 55.4; Platelet Count 328 10^3/uL (130-400); RBC 4.85 10^6/uL (4.36-5.78); RDW 12.8 % (11.8-14.1); RDW-SD 42.6 fL; WBC 6.42 10^3/uL (4.4-10.8)
--- NOTE | 2023-08-19 06:15 | DI.US_ITS ---
Exam(s) US EXTREMITY VENOUS BI EXAM: US EXTREMITY VENOUS BI CLINICAL HISTORY: BLE edema, RLE warm slightly swollen compared to L. TECHNIQUE: Bilateral lower extremity venous ultrasound performed using grayscale, color-flow, and sp ectral Doppler analysis. COMPARISON: No exams were available for comparison FINDINGS: The right common femoral, femoral and popliteal veins demonstrate normal compressibility, augmentatio n, and color Doppler. The posterior tibial and peroneal veins are patent. The saphenofemoral junctio n is unremarkable. There is no evidence of a Castro's cyst. The soft tissues are unremarkable. The left common femoral, femoral and popliteal veins demonstrate normal compressibility, augmentation , and color Doppler. The posterior tibial and peroneal veins are patent. The saphenofemoral junction is unremarkable. There is no evidence of a Castro's cyst. The soft tissues are unremarkable. IMPRESSION: 1. No evidence of a right lower extremity DVT. 2. No evidence of a left lower extremity DVT. DATA REPOSITORY:
[2023-08-19 06:45] LABS: ALT 47 U/L (16-63); AST 38 U/L (15-37); Albumin 3.5 g/dL (3.4-5.0); Alkaline Phosphatase 61 U/L (46-116); BUN 16 mg/dL (7-18); Bilirubin, Total 0.3 mg/dL (0.2-1.0); CREATININE 0.9 mg/dL (0.70-1.30); Calcium 9.2 mg/dL (8.5-10.1); Chloride 102 mmol/L (98-107); Glucose 102 mg/dL (74-106); Potassium 4.3 mmol/L (3.5-5.1); Sodium 139 mmol/L (136-145); TSH (W/Ref FT4) 0.98 uIU/mL (0.36-3.74); Total Protein 7.3 g/dL (6.4-8.2)
[2023-08-19 06:50] LABS: COVID-19 PCR Negative (Negative); Influenza A PCR Negative (Negative); Influenza B PCR Negative (Negative); RSV PCR Negative (Negative)
[2023-08-19 06:52] LABS: Source Nasopharynx
[2023-08-19 07:01] LABS: D-Dimer 1330 ng/mlFEU (<500)
[2023-08-19 07:05] LABS: NT-proBNP 40 pg/mL (<300)
--- NOTE | 2023-08-19 07:20 | W.EDPROG ---
Date of service: 08/19/23 Time of Service: 07:20 Medical Decision Making I received signout on this 48-year-old male in the emergency department in the setting of palpitations and generalized body tingling. He is pending an ultrasound of his right lower extremity and a CTA of his chest to assess for PE in the setting of elevated D-dimer. Will follow-up with the patient following these imaging studies. 9:[address] scan was read as reassuring with no evidence of PE thoracic dissection or aneurysm. He did have a 4 mm right middle lobe nodule about which I advised him. Ultrasound negative for DVT. I recommended primary care follow-up and have asked health refinery operator vapor recovery unit at been at the patient seen within 1 week. Radiology recommends possibility of his repeat CT in 1 year. I advised patient to return to the emergency department if you develop recurrent chest pain could not eat or drink as result of nausea or vomiting or if he had any other concerns. He understood his return indications and was discharged with an empiric trial of expectant outpatient management. Quality:[facility] Health Related Social Needs: No Data to Display Sign Out Sign Out Data: Sign Out Comment: 48yo M presenting with various concerns including right leg and chest 'thumping'. EKG/labs reassuring aside from elevated dimer, exam concerning for potential DVT. Pending US and CT for PE. Last updated by Rosmery Miranda MD at 08/19/23 07:25 Discharge Plan Disposition Patient Disposition: Home Discharge Details Clinical Impression: Palpitations, Incidental pulmonary nodule, > 3mm and < 8mm, Abnormal radiologic finding of lung field Primary Care Provider: Mayur Nicole ED Provider: Khris Soto Home Meds and New Rx's Prescriptions: Continued ibuprofen 200 mg capsule 200 mg PO Q6H PRN coQ10 (ubiquinol) 100 mg Capsule 100 mg PO DAILY Discharge Instructions Instructions: Heart Palpitations (ED) Additional Instructions: You were seen in the emergency department for your palpitations. Your CAT scan showed no sign of a blood clot in your lungs but did show a 4 mm right middle lobe pulmonary nodule for which radiology recommended the possibility of a repeat CAT scan in 1 year. Please follow-up with your primary care provider, as we discussed, concerning this incidental finding. Please return to the emergency department if you develop fevers cannot eat or drink as result of nausea or vomiting or if you develop any shortness of breath.
[2023-08-19] MEDS: Normal Saline - Diluent 50 ML VIAL IJ (07:31)
[2023-08-19] MEDS: Omnipaque 350 MG/ML 500 ML BTL-Imaging package 100 ML IJ (07:37)
--- NOTE | 2023-08-19 07:41 | DI.CT_ITS ---
Exam(s) CT CHEST PE CTA EXAM: CT CHEST PE CTA CLINICAL HISTORY: palpitations, elevated dimer. TECHNIQUE: Imaging Protocol: Axial CT angiography was performed with multi-slice acquisition and mu lti-planar and/or 3D reconstructions. CONTRAST MATERIAL: Intravenous: Omnipaque 350 contrast volume:100 mL COMPARISON: No exams were available for comparison FINDINGS: The examination is limited due to patient motion artifact. Tracheobronchial tree: Patent where visualized. Pulmonary parenchyma: No consolidation or dominant measurable mass. There is poor inspiration. There is a 4 mm nodule in the lateral aspect of the right middle lobe. (Series 5, image 350). There is a calcified granuloma in the left lower lobe. Pulmonary Arteries: No evidence of filling defect to suggest pulmonary emboli. Mediastinum and Hannah: No dominant adenopathy or fluid collection. The esophagus is unremarkable. Visualized thyroid gland: Unremarkable. Pleura: No effusion or pneumothorax. Heart: The heart is not dilated. Minimal coronary artery calcification. No pericardial effusion. Aorta: Thoracic aorta non-dilated. No evidence of dissection. Upper abdomen: Unremarkable. Soft tissues: Mild gynecomastia. Incidental note is made of a right-sided sternalis muscle. This is an uncommon accessory muscle. Bones: Within normal limits for the patient's age. IMPRESSION: 1. No evidence of pulmonary embolism, thoracic aortic dissection or aneurysm. 2. 4 mm right middle lobe pulmonary nodule. 3. Solid nodules smaller than 6 mm do not require routine follow-up in all patients with high clinica l risk; optional CT scan in 12 months may be obtained. (Grade 2A; weak recommendation, high-quality e vidence). (Javier et al., 2017) RADIATION DOSE DELIVERED: 389.18mGy.cm Total DLP DATA REPOSITORY: All CT scans at this facility are submitted to the National Radiology Data Registry (NRDR) Dose Index Registry (DIR) with the [employer] (A[employer]). RADIATION OPTIMIZATION: All CT scans at this facility use at least one of these dose optimization te chniques: automated exposure control; mA and/or kV adjustment per patient size (includes targeted exa ms where dose is matched to clinical indication); or iterative reconstruction.
--- NOTE | 2023-08-19 08:26 | DI.VRAD_ITS ---
PROCEDURE INFORMATION: Exam: CTA Chest With Contrast Exam date and time: 08/19/2023 7:31 AM Age: 48 years old Clinical indication: Other: Palpitations, elevated d-dimer; Patient HX: No personal history of clot. Family history. No recent surgeries. TECHNIQUE: Imaging protocol: Computed tomographic angiography of the chest with contrast. Exam focused on the arteries. 3D rendering (Not supervised by radiologist): MIP and/or 3D reconstructed images were created by the technologist. Contrast material: OMNIPAQUE 350; Contrast volume: 100 ml; Contrast route: INTRAVENOUS (IV); COMPARISON: No relevant prior studies are available for comparison. FINDINGS: Limitations: Mild motion artifact. Pulmonary arteries: No pulmonary embolus is appreciated. Prominent central pulmonary arteries. Correlate clinically for history of pulmonary hypertension. Aorta: No thoracic aortic aneurysm seen. Lungs: Subcentimeter right middle and lower lobe pulmonary nodules. Follow-up per institutional protocol if prior studies do not adequately document stability. Pleural spaces: No pleural effusion. Heart: No pericardial effusion. Mediastinal space: Mild thickening of the distal esophagus. Lymph nodes: Nonspecific axillary lymph nodes. Adrenal glands: Mild adrenal thickening. Stomach and bowel: Apparent gastric thickening commensurate with underdistention. Bones/joints: No acute pertinent abnormality seen. Soft tissues: Gynecomastia. IMPRESSION: 1. No pulmonary embolus is appreciated. 2. Mild thickening of the distal esophagus, cannot exclude esophagitis, neoplasm. Please correlate clinically. 3. Nonacute findings as outlined above. Dictated and Authenticated by: Danita Vences MD. Ordering:NO Botello MD
--- NOTE | 2023-08-19 09:28 | NUR.NOTE ---
Nursing Note: PT needs follow up in one week with PCP for Lung Nodule. Yenny, ED
[2023-08-19 09:49] VITALS: BP 142/95; PULSE 71; RESP 18; TEMP 36.8; O2SAT 97
== END 2023-08-19 09:55 | disposition home or self-care (01) ==
PROVIDERS: Student in an Organized Health Care Education/Training Program; Emergency Provider Emergency Medicine; PCP Physician Assistant
DX: R00.2 Palpitations (principal); R20.2 Paresthesia of skin; R91.8 Other nonspecific abnormal finding of lung field; I73.00 Raynaud's syndrome without gangrene; E78.5 Hyperlipidemia, unspecified; F17.210 Nicotine dependence, cigarettes, uncomplicated; Z11.52 Encounter for screening for COVID-19
CPT/HCPCS: 00123; 71275; 80053; 87637; 93005; 99285; 83605; 83735; 83880; 84443; 85025; 85379; 93010; 93970; 99284